=== PATIENT | female | born 1960 | race Caucasian/White ===

== ENCOUNTER 2025-09-23 07:43 | Outpatient (CLI) | payer MEDICARE, SELFPAY ==
--- NOTE | ~2025-09-23 | CT_ITS ---
EXAMINATION:CT lung screening DATE: 09/23/2025 08:04 INDICATION: Screening TECHNIQUE: Computed tomography (CT) of the chest was performed without intravenous contrast. The dose-length product (DLP) was 100.49 mGy-cm. COMPARISON: None. FINDINGS: 6 x 4 mm nodule lateral segment subpleural left lower lobe image 81 series 4. 5 x 3 mm right lower lobe subpleural nodule in the lateral segment image 81 series 4 as well. No large masses. Moderately severe diffuse centrilobular emphysematous changes in lungs. Heart and great vessels appear normal for technique. Bones, visualized portions of the upper abdomen and adnexa thoracic soft tissuesWith no focal acute process. IMPRESSION: 2 subcentimeter nodules in the lower lobes probably benign. Correlation with 6 month follow-up low-dose lung cancer chest CT recommended. Lung RADS 3. Reviewed, dictated and finalized at location A. A DEVELOPER IMPRESSION: 2 subcentimeter nodules in the lower lobes probably benign. Correla tion with 6 month follow-up low-dose lung cancer chest CT recommended. Lung RAD S 3.
== END 2025-09-23 07:44 | disposition home or self-care (01) ==
PROVIDERS: PCP Internal Medicine; Visit Provider Internal Medicine Cardiovascular Disease
DX: Z12.2 Encounter for screening for malignant neoplasm of respiratory organs (principal); Z87.891 Personal history of nicotine dependence
CPT/HCPCS: 71271